=== PATIENT | female | born 1990 | race Hispanic/Latino ===

== ENCOUNTER 2020-03-23 16:38 | Emergency (ER) | payer BC ==
--- NOTE | 2020-03-23 17:41 | RAD REPORT ---
EXAM DESCRIPTION: RAD - Chest Single View - 03/23/2020 5:19 pm CLINICAL HISTORY: Chest pain;Blunt chest trauma COMPARISON: None TECHNIQUE: AP portable chest image was obtained 03/23/2020 5:19 pm . FINDINGS: Lungs are clear. Heart and vasculature are normal. No measurable pleural effusion and no p neumothorax. No acute bony abnormality seen. No acute aortic findings suspected. IMPRESSION: No acute cardiopulmonary process.
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
[2020-03-23 18:10] VITALS: TEMP 98.1
[2020-03-23 18:16] VITALS: BP 114/71; O2SAT 99
== END 2020-03-23 17:59 | disposition home or self-care (01) ==
LOC: ER 16:38
DX: G89.11 Acute pain due to trauma (principal); V49.40XA Driver injured in collision with unspecified motor vehicles in traffic accident, initial encounter; F41.9 Anxiety disorder, unspecified; E11.9 Type 2 diabetes mellitus without complications
CPT/HCPCS: 71045; 99284

== ENCOUNTER 2021-08-28 13:21 | Emergency (ER) | payer BC ==
--- NOTE | 2021-08-28 13:57 | RAD REPORT ---
EXAM DESCRIPTION: CT - Head Brain Wo Cont - 08/28/2021 1:51 pm CLINICAL HISTORY: Dizziness Headache, drowsiness, dizziness COMPARISON: No comparisons TECHNIQUE: All CT scans are performed using dose optimization technique as appropriate and may inclu de automated exposure control or mA/KV adjustment according to patient size. FINDINGS: No intracranial hemorrhage, hydrocephalus or extra-axial fluid collection.No areas of brai n edema or evidence of midline shift. The paranasal sinuses and mastoids are clear except for mild thickening of the sphenoid sinus. The ca lvarium is intact. IMPRESSION: No acute intracranial abnormality.
[2021-08-28 14:08] LABS: Absolute Lymphocytes (CBC) 3.5 K/uL (0.7-4.9); Basophils % 0.4 % (0-1.3); Hematocrit 40.4 % (36.0-45.0); Lymphocytes % 36.1 % (15.3-44.8); MPV 7.5 fL (7.6-11.3); RBC Red Blood Cell Count 4.73 M/uL (3.86-4.86)
[2021-08-28 14:30] LABS: Protime INR 1.06
[2021-08-28 14:36] LABS: ALT/SGPT 45 U/L (12-78); AST/SGOT 26 U/L (15-37); Albumin 3.3 g/dL (3.4-5.0); Alkaline Phosphatase 77 U/L (45-117); BUN Blood Urea Nitrogen 14 mg/dL (7-18); Bicarbonate 23 mmol/L (21-32); Bilirubin Direct 0.1 mg/dL (0-0.2); Bilirubin Total 0.4 mg/dL (0.2-1.0); Creatine Phosphokinase 48 U/L (26-192); Glucose Level 313 mg/dL (74-106); Lipase 544 U/L (73-393); Magnesium 1.7 mg/dL (1.8-2.4); Potassium 3.8 mmol/L (3.5-5.1); Protein, Total 7.3 g/dL (6.4-8.2); Sodium Level 136 mmol/L (136-145); Troponin (Emerg Dept Use Only) < 0.02 ng/mL (0.0-0.045)
[2021-08-28 14:38] LABS: CKMB Creatine Kinase MB < 1.0 ng/mL (1.0-3.6)
[2021-08-28 15:12] LABS: Urine Blood Negative (Negative); Urine Glucose 3+ (Negative); Urine Protein Negative (Negative); Urine pH 5.5 (5.0-7.0)
[2021-08-28] MEDS ORDERED: NA CHLORIDE 0.9% 1,000 ML ONE (15:28)
[2021-08-28] MEDS ORDERED: MECLIZINE HCL 12.5 MG TAB ONE (15:46)
[2021-08-28 15:55] LABS: Barbiturates NEGATIVE (NEGATIVE); Benzodiazepines NEGATIVE (NEGATIVE); Cocaine NEGATIVE (NEGATIVE); METHAMPHETAM NEGATIVE (NEGATIVE); Methadone NEGATIVE (NEGATIVE); Opiates NEGATIVE (NEGATIVE); Phencyclidine NEGATIVE (NEGATIVE); THC Cannibis NEGATIVE (NEGATIVE)
--- NOTE | 2021-08-28 18:38 | ER ---
Nurse's Notes [facility] Name: Ivania Thornton Age: 30 yrs Sex: Female : 1990 Arrival Date: 08/28/2021 Time: 13:24 Bed 26 [facility] MD: Diagnosis: syncope Presentation: 08/28 13:24 Chief complaint: EMS states: states that patient passed out at work. states that jw6 patient does not remember passing out. Patient states they are nauseated and "very sleepy". Coronavirus screen: Vaccine status: Patient reports receiving the 2nd dose of the covid vaccine. [employer] Client denies travel out of the [place] in the last 14 days. Ebola Screen: Patient negative for fever greater than or equal to 101.5 degrees Fahrenheit, and additional compatible Ebola Virus Disease symptoms Patient denies exposure to infectious person. Patient denies travel to an Ebola-affected area in the 21 days before illness onset. Initial Sepsis Screen: Does the patient meet any 2 criteria? No. Patient's initial sepsis screen is negative. Risk Assessment: Do you want to hurt yourself or someone else? Patient reports no desire to harm self or others. Onset of symptoms was August 28, 2021. 13:24 Method Of Arrival: EMS 6 13:24 Acuity: LIDYA 3 jw6 Triage Assessment: 13:28 General: Appears comfortable, Behavior is cooperative, drowsy, quiet. Pain: Denies pain.jw6 Historical: - Home Meds: 13:28 Metformin Oral [Active]; jw6 - PMHx: 13:28 Anxiety; Diabetes - NIDDM; jw6 - Immunization history:: Adult Immunizations up to date. - Social history:: Smoking status: Patient/guardian denies using alcohol, street drugs, over the counter diet medications, tobacco products. - Code Status:: Full code. Screenin:28 Abuse screen: Denies threats or abuse. Denies injuries from another. Nutritional jw6 screening: No deficits noted. Tuberculosis screening: No symptoms or risk factors identified. Fall Risk Fall in past 12 months (25 points). IV access (20 points). Gait- Weak (10 pts.). Assessment: 13:28 General: Appears comfortable, Behavior is cooperative, drowsy, quiet. Pain: Denies jw6 pain. Neuro: No deficits noted. Cardiovascular: No deficits noted. Respiratory: No deficits noted. GI: No deficits noted. : No deficits noted. EENT: No deficits noted. Derm: No deficits noted. Musculoskeletal: No deficits noted. Vital Signs: 13:24 BP 128 / 75; Pulse 94; Resp 18; Temp 99(O); Pulse Ox 100% ; Weight 81.65 kg; Height 5 jw6 ft. 3 in. (160.02 cm); Pain 0/10; 14:39 BP 123 / 79; Pulse 88; Resp 18; Pulse Ox 99% on R/A; jw6 13:24 Body Mass Index 31.89 (81.65 kg, 160.02 cm) jw6 Vitals: 13:28 Cardiac Rhythm Assessment Regular Sinus rhythm. jw6 ED Course: 13:24 Patient arrived in ED. rn 13:24 Radha Crews is Primary Nurse. jw6 13:26 Carly Maldonado FNP-C is PHCP. kb 13:26 Ru Bunch MD is Attending Physician. kb 13:28 Triage completed. jw6 13:28 Arm band placed on left wrist. jw6 13:28 Patient has correct armband on for positive identification. Bed in low position. Call jw6 light in reach. Side rails up X2. 13:28 No provider procedures requiring assistance completed. Maintain EMS IV. Dressing jw6 intact. Good blood return noted. Site clean \\T\\ dry. Gauge \\T\\ site: 20 L AC. 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 Pulse ox on. NIBP on. jw6 14:36 Adult w/ patient. Warm blanket given. 5 14:36 EKG done. 5 17:35 PHCP role handed off by Carly Maldonado FNP-C cp 17:35 Semaj Almazan PA is PHCP. cp Administered Medications: 15:21 Drug: Meclizine 25 mg Route: PO; jw6 15:27 Follow up: Response: No adverse reaction jw6 15:28 Drug: NS 0.9% 1000 ml Route: IV; Rate: 1000 ml; Site: right antecubital; jw6 Outcome: 18:37 Discharge ordered by . cp 18:58 Patient left the ED. jw6 Signatures: Carly Maldonado FNP-C FNP-Ru Pickard MD MD rn Page, Corey, PA PA cp Martinez, Maria 5 Radha Crews jw6
--- NOTE | 2021-08-28 18:39 | EDPHYS ---
Physician Documentation [facility] Name: Ivania Thornton Age: 30 yrs Sex: Female : 1990 Arrival Date: 08/28/2021 Time: 13:24 Bed 26 Private MD: ED Physician Ru Bunch HPI: 08/28 15:10 This 30 yrs old Female presents to ER via EMS with complaints of Passed Out kb Prior To Arrival. 15:10 The patient has not recently seen a physician. kb 16:15 The patient has experienced syncope, collapsed. Onset: The symptoms/episode kb began/occurred just prior to arrival. Duration: This was a single episode. Context: the episode(s) was witnessed, by co-worker(s), occurred at work, occurred while the patient was walking, Just prior to the episode the patient experienced dizziness, headache, nausea. Associated injury: The patient did not suffer any apparent associated injury. Associated signs and symptoms: Pertinent positives: dizziness, headache, nausea. Current symptoms: Currently, the patient is not experiencing any symptoms, the patient feels back to baseline, no decreased level of consciousness, no confusion, no dysphasia, no headache, no paralysis, no visual changes. The patient has not experienced similar symptoms in the past. Pt states she had nausea, dizziness and a headache this morning. States she stood up from a sitting position to go to the restroom because she thought she was going to vomit and passed out. Still has nausea, headache and dizziness. Historical: - Home Meds: 13:28 Metformin Oral [Active]; jw6 - PMHx: 13:28 Anxiety; Diabetes - NIDDM; jw6 - Immunization history:: Adult Immunizations up to date. - Social history:: Smoking status: Patient/guardian denies using alcohol, street drugs, over the counter diet medications, tobacco products. - Code Status:: Full code. ROS: 15:09 Constitutional: Negative for fever, chills, and weight loss. kb 15:09 Neuro: Positive for dizziness, headache, syncope. 15:09 All other systems are negative. 15:10 Abdomen/GI: Positive for nausea. kb Exam: 14:49 ECG was reviewed by the Attending Physician. rn 15:09 Constitutional: This is a well developed, well nourished patient who is awake, alert, kb and in no acute distress. Head/Face: Normocephalic, atraumatic. ENT: Moist Mucous membranes Cardiovascular: Regular rate and rhythm with a normal S1 and S2. No gallops, murmurs, or rubs. No pulse deficits. Respiratory: Respirations even and unlabored. No increased work of breathing, no retractions or nasal flaring. Abdomen/GI: Soft, non-tender. No distention Skin: Warm, dry with normal turgor. Normal color. MS/ Extremity: Pulses equal, no cyanosis. Neurovascular intact. Full, normal range of motion. Neuro: Awake and alert, GCS 15, oriented to person, place, time, and situation. Moves all extremities. Normal gait. Psych: Awake, alert, with orientation to person, place and time. Behavior, mood, and affect are within normal limits. 15:09 Constitutional: The patient appears drowsy Vital Signs: 13:24 BP 128 / 75; Pulse 94; Resp 18; Temp 99(O); Pulse Ox 100% ; Weight 81.65 kg; Height 5 jw6 ft. 3 in. (160.02 cm); Pain 0/10; 14:39 BP 123 / 79; Pulse 88; Resp 18; Pulse Ox 99% on R/A; jw6 13:24 Body Mass Index 31.89 (81.65 kg, 160.02 cm) jw6 MDM: 13:26 Patient medically screened. kb 15:09 Data reviewed: vital signs, nurses notes. Data interpreted: Pulse oximetry: on room air kb is 99 %. Interpretation: normal. 17:18 ED course: Pt now reports cough and congestion as well. Awaiting covid and mono results.kb 17:36 Transition of care: After a detail discussion of the patient's case, care is kb transferred to Semaj FITZGERALD. 08/28 13:34 Order name: Basic Metabolic Panel kb 08/28 13:34 Order name: CBC with Diff kb 08/28 13:34 Order name: CPK kb 08/28 13:34 Order name: Ckmb kb 08/28 13:34 Order name: Hepatic Function kb 08/28 13:34 Order name: Lipase kb 08/28 13:34 Order name: Magnesium kb 08/28 13:34 Order name: Protime (+inr) kb 08/28 13:34 Order name: Ptt, Activated kb 08/28 13:34 Order name: Troponin (emerg Dept Use Only) kb 08/28 13:34 Order name: Acetone, Serum kb 08/28 13:45 Order name: Glucose, Ancillary Testing; Complete Time: 13:47 EDMS 08/28 14:07 Order name: UDS kb 08/28 14:09 Order name: CBC with Automated Diff; Complete Time: 14:09 EDMS 08/28 14:38 Order name: Basic Metabolic Panel; Complete Time: 14:56 EDMS 08/28 14:38 Order name: Liver (Hepatic) Function; Complete Time: 14:56 EDMS 08/28 14:38 Order name: Creatine Phosphokinase; Complete Time: 14:56 EDMS 08/28 14:38 Order name: CKMB Creatine Kinase MB; Complete Time: 14:56 EDMS 08/28 14:38 Order name: Troponin (Emerg Dept Use Only); Complete Time: 14:56 EDMS 08/28 14:38 Order name: Magnesium; Complete Time: 14:56 EDMS 08/28 14:38 Order name: Lipase; Complete Time: 14:56 EDMS 08/28 14:42 Order name: Protime (+INR); Complete Time: 14:50 EDMS 08/28 14:42 Order name: PTT, Activated Partial Thromb; Complete Time: 14:50 EDMS 08/28 14:56 Order name: Acetone Level; Complete Time: 14:56 EDMS 08/28 15:12 Order name: Urine Dipstick-Ancillary; Complete Time: 15:37 EDMS 08/28 15:13 Order name: Urine --Ancillary (enter results); Complete Time: 09:18 mb4 08/28 15:56 Order name: Urine Drug Screen; Complete Time: 15:56 EDMS 08/28 16:49 Order name: [place] Screen Profile 08/28 16:49 Order name: COVID-19 SARS RT PCR (Document "Date of Onset" if Symptomatic) 08/28 17:35 Order name: [place] Screen; Complete Time: 17:35 EDMS 08/28 13:34 Order name: EKG; Complete Time: 16:43 kb 08/28 13:34 Order name: Cardiac monitoring; Complete Time: 13:34 kb 08/28 13:34 Order name: EKG - Nurse/Tech; Complete Time: 14:31 kb 08/28 13:34 Order name: IV Saline Lock; Complete Time: 13:34 kb 08/28 13:34 Order name: Labs collected and sent; Complete Time: 13:48 kb 08/28 13:34 Order name: NPO; Complete Time: 13:34 kb 08/28 13:34 Order name: O2 Per Protocol; Complete Time: 13:34 kb 08/28 13:34 Order name: O2 Sat Monitoring; Complete Time: 13:35 kb 08/28 13:34 Order name: CT Head Brain wo Cont kb 08/28 13:57 Order name: CT; Complete Time: 14:06 EDMS 08/28 18:20 Order name: SARS-COV-2 RT PCR; Complete Time: 18:37 EDMS EC:49 Rate is 83 beats/min. Rhythm is regular. QRS [place] is Normal. MN interval is normal. QRS rn interval is normal. QT interval is normal. No Q waves. T waves are Normal. No ST changes noted. Clinical impression: Normal ECG. Interpreted by me. Reviewed by me. Administered Medications: : Drug: Meclizine 25 mg Route: PO; jw6 15:27 Follow up: Response: No adverse reaction jw6 15:28 Drug: NS 0.9% 1000 ml Route: IV; Rate: 1000 ml; Site: right antecubital; jw6 Disposition: 08/29 09:18 Co-signature as Attending Physician, Ru Bunch MD I agree with the assessment and rn plan of care. 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 HPI: 30-year-old female with a few days of fatigue and malaise. Reports headache, congestion, cough, nausea and fatigue. Did a rapid home Covid test that was negative. Today had syncopal episode at work, no injury. Currently main complaint is extreme fatigue. Denies blood in the stool or . My personal exam of patient reveals: 30-year-old female, no acute distress, no abdominal tenderness. Normal neurological exam without acute findings or lateralization. I agree with assessment and care plan and confirm the diagnosis (es) above. Disposition Summary: 08/28/21 18:37 Discharge Ordered Location: Home cp Problem: new cp Symptoms: have improved cp Condition: Stable cp Diagnosis - syncope cp Followup: kb - With: Emergency Department - When: As needed - Reason: Worsening of condition Followup: kb - With: Private Physician - When: 2 - 3 days - Reason: Recheck today's complaints, Continuance of care, Re-evaluation by your physician Discharge Instructions: - Discharge Summary Sheet cp - Syncope cp - Form - Excuse from Work, School, or Physical Activity jw6 Forms: - Medication Reconciliation Form cp - Thank You Letter cp - Antibiotic Education cp - Prescription Opioid Use cp Signatures: Dispatcher [employer] EDMS Carly Maldonado, JU-Anisa DODD-Ru Pickard MD MD rn Semaj Almazan PA PA cp Welch, Jessica jw6 Corrections: (The following items were deleted from the chart) 08/28 16:18 16:15 Pt states she had nausea, dizziness and a headache this morning. States she stood kb up from a sitting position to go to the restroom because she thought she was going to vomit and passed out. kb
[2021-08-28 19:22] VITALS: TEMP 99
[2021-08-28 19:23] VITALS: BP 123/79; O2SAT 99
== END 2021-08-28 18:58 | disposition home or self-care (01) ==
LOC: ER 13:21
DX: R55 Syncope and collapse (principal); E11.9 Type 2 diabetes mellitus without complications; Z20.822 Contact with and (suspected) exposure to COVID-19
CPT/HCPCS: 93005; 85025; 80048; 36415; 82010; 83735; 82550; 86308; 81025; 85610; 82947; 80076; 85730; 81003; 84484; 82553; 83690; 80307; 70450; 99284; U0003; J7030